=== PATIENT | female | born 1990 | race Caucasian/White ===

== ENCOUNTER 2016-08-15 19:48 | Inpatient (IN) | payer OTHER ==
[2016-08-15] MEDS ORDERED: Nalbuphine 20 MG/1 ML Amp IVPUSH PRN (20:50)
[2016-08-15] MEDS ORDERED: Ondansetron 4 MG/2 ML SDV IVPUSH PRN (20:50)
[2016-08-15] MEDS ORDERED: Aluminum Hydroxide/Magnesium Hydroxide/Simethicone Susp 30 ML Cup PO PRN (20:50)
[2016-08-15] MEDS ORDERED: Lidocaine 1% 50 ML MDV INJECT PRN (20:50)
[2016-08-15] MEDS ORDERED: Oxytocin/Lactated Ringers 10 UNIT/1,000 ML BAG IV SCH (21:00)
[2016-08-15] MEDS ORDERED: Ampicillin 2 GM in Sodium Chloride 0.9% 100 ML IV ONE (21:00)
[2016-08-15] MEDS: Lactated Ringers 1,000 ML IV SCH (21:05)
--- NOTE | 2016-08-15 22:05 | PCM.LDHP ---
<Shyla Ambrocio - Last Filed: 08/15/16 22:53> L&D History of Present Illness - General Date of Service: 08/15/16 Admit Problem/Dx: Patient Status Order with Admit Dx/Problem 08/15/16 20:51 Patient Status [ADT] Routine Patient Status: Refer to Observation Admission Diagnosis/Problem: Reason for Admit: SROM Nurse Unit Type: Labor and Delivery Admitting Physician: Sean Bean Attending Physician: Sean Bean Medicare 96 Hour Certification Statement: This Patient is Admitted for Inpatient Services and is Medically Appropriate and Meets Medical Necessity for Inpatient Admission. I Reasonably Expect the Patient Will Require Inpatient Services That Span a Period of Time Over 2 Midnights. My Rationale for Medically Necessary Inpatient Care Will Be Found in the Admission History & Physical and Progress Notes. I Reasonably Expect the Patient to be Discharged or Transferred Within 96 Hours After Admission to This [facility]. Admission Diagnosis/Problem Admission Diagnosis/Problem 08/15/16 22:00 39-3/7 week intrauterine SROM - early labor. Source of Information: Patient History Limitations: Reports: No limitations - History of Present Illness Introduction:: Eleanor is a 26-year-old female who presents with SROM, which occurred at approximately 1930. Patient reports good movement, minimal contractions, and denies vaginal bleeding. TISHA is 08/19/16 based on early ultrasound done on . She has had regular care. Fetus has been measuring large for gestational age throughout the . DTAP and influenza shots were given. 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 LMP 10/26/2015. History of irregular menses, occurring approximately every 40 days with variable flow. Menarche at age 12. Last pap smear 01/18/16. No history of STIs. Patient was not on control at time of conception. Patient blood type is O positive, antibody negative. Platelet count on admission 177. Hgb 12.2, hct 35.4%. Patient is rubella immune, RPR nonreactive, HBsAg negative, HIV negative. Negative for chlamydia and gonorrhea. GBS positive. Patient does plan to breastfeed. Medications: vitamins, daily. Allergies: No known allergies. PMH: Noncontributory. PSH: [place] tooth extraction, 2006. Family History: Mother and father both alive and well. Grandparents also alive and well. One sister, who is alive and well. Social History: The patient lives in [place] with her , Terence, and four dogs. Never a smoker. Denies use of alcohol during . Denies history of drug use. - Related Data Allergies/Adverse Reactions: Allergies Allergy/AdvReac Type Severity Reaction Status Date / Time No Known Allergies Allergy Verified 08/15/16 20:58 Home Medications: Home Meds PNV95/Ferrous Fumarate/FA [ Tablet] 1 each PO DAILY 08/06/16 [History] H&P Review of Systems - Review of Systems: Review Of Systems: See Below Free Text/Narrative: General: No weakness or malaise. Skin: No rash. No itching. HEENT: No visual changes. No tinnitus or vertigo. Neck: Supple. Cardiac: No palpitations. Respiratory: No SOB. No cough or sputum production. GI: No nausea or vomiting. No changes in bowel habits. Hematologic: No history of blood transfusion. L&D Exam - Exam Exam: See Below - Vital Signs Weight: 74.389 kg - OB Specific Contraction Intensity: Mild movement: active heart tones: present - Hopkins Score Hopkins Score Cervix Position: Midposition Hopkins Score Consistency: Soft Hopkins Score Effacement: 51-70% Hopkins Score Dilation: 1-2 cm Hopkins Score 's Station: -2 Hopkins Score Total: 7 - Exam General: alert, oriented HEENT: Conjunctiva clear Neck: supple, trachea midline Lungs: Clear to auscultation, Normal respiratory effort Cardiovascular: regular rate, regular rhythm Abdomen: other (Gravid uterus; fetus is vertex) Back Exam: normal inspection Extremities: normal inspection Skin: warm, dry, intact Psychiatric: alert, normal affect, normal mood - Patient Data Lab Results last 24 hrs: Laboratory Results - last 24 hr 08/15/16 Range/Units 21:10 WBC 9.90 (3.98-10.04) K/mm3 RBC 3.77 L (3.98-5.22) M/mm3 Hgb 12.2 (11.2-15.7) gm/L Hct 35.4 (34.1-44.9) % MCV 93.9 (79.4-94.8) fl MCH 32.4 H (25.6-32.2) pg MCHC 34.5 (32.2-35.5) g/dl RDW Std Deviation 42.4 (36.4-46.3) fL Plt Count 177 L (182-369) K/mm3 MPV 11.4 (9.4-12.3) fl Neut % (Auto) 67.5 (34.0-71.1) % Lymph % (Auto) 23.5 (19.3-51.7) % Bent % (Auto) 8.0 (4.7-12.5) % Eos % (Auto) 0.5 L (0.7-5.8) Baso % (Auto) 0.1 (0.1-1.2) % Neut # (Auto) 6.68 H (1.56-6.13) K/mm3 Lymph # (Auto) 2.33 (1.18-3.74) K/mm3 Bent # (Auto) 0.79 H (0.24-0.36) K/mm3 Eos # (Auto) 0.05 (0.04-0.36) K/mm3 Baso # (Auto) 0.01 (0.01-0.08) K/mm3 Result Diagrams: 08/15/16 21:10 Problem List Initiated/Reviewed/Updated: Yes Orders Last 24hrs: Active Orders 24 hr Category Date Time Status Patient Status [ADT] Routine ADT 08/15/16 20:51 Active Activity as Tolerated [RC] PFP Care 08/15/16 20:50 Active Communication Order [RC] ASDIRECTED Care 08/15/16 20:50 Active Notify Provider [RC] PFP Care 08/15/16 20:50 Active Notify Provider [RC] PRN Care 08/15/16 20:50 Active Vital Signs [RC] PER UNIT ROUTINE Care 08/15/16 20:50 Active Clear Liquid Diet [DIET] Diet 08/15/16 Breakfast Active TYPE AND SCREEN [BBK] Routine Lab 08/15/16 21:10 Received Alum Hydrox/Mag Hydrox/Simeth [Mag-Al Plus] Med 08/15/16 20:50 Active 30 ml PO Q8H PRN Ampicillin 1 gm Med 08/16/16 01:00 Active Sodium Chloride 0.9% [Normal Saline] 100 ml IV Q4H Lactated Ringers [Ringers, Lactated] 1,000 ml Med 08/15/16 21:00 Active IV ASDIRECTED Lidocaine 1% [Xylocaine 1%] Med 08/15/16 20:50 Active 50 ml INJECT ONETIME PRN Nalbuphine [Nubain] Med 08/15/16 20:50 Active 10 mg IVPUSH Q2H PRN Ondansetron [Zofran] Med 08/15/16 20:50 Active 4 mg IVPUSH Q4H PRN Oxytocin/Lactated Ringers [Pitocin in LR 10 Units/1,000 Med 08/15/16 21:00 Active ML] 10 unit in 1,000 ml IV ASDIRECTED Oxytocin/Lactated Ringers [Pitocin in LR 10 Units/1,000 Med 08/15/16 21:00 Active ML] 10 unit in 1,000 ml IV TITRATE Electronic Heart Tones Ext w TOCO [WOMSER] Oth 08/15/16 20:50 Ordered Routine Electronic Heart Tones Internal [WOMSER] Per Unit Oth 08/15/16 20:50 Ordered Routine Peripheral IV Insertion Adult [OM.PC] Routine Oth 08/15/16 20:50 Ordered Resuscitation Status Routine Resus Stat 08/15/16 20:50 Ordered Medication Orders Al Hydroxide/Mg Hydroxide (Mag-Al Plus) 30 ml PO Q8H PRN PRN Reason: Heartburn Ampicillin Sodium 1 gm/ Sodium (Chloride) 100 mls @ 200 mls/hr IV Q4H [facility]O Lactated Ringer's (Ringers, Lactated) 1,000 mls @ 100 mls/hr IV ASDIRECTED [facility] Last Admin: 08/15/16 21:05 Dose: 100 mls/hr Oxytocin/Lactated Ringer's (Pitocin In Lr 10 Units/1,000 Ml) 10 unit in 1,000 mls @ 500 mls/hr IV ASDIRECTED LAZARO Oxytocin/Lactated Ringer's (Pitocin In Lr 10 Units/1,000 Ml) 10 unit in 1,000 mls @ 12 mls/hr IV TITRATE LAZARO; 2 MUNITS/MIN PRN Reason: Protocol Lidocaine HCl (Xylocaine 1%) 50 ml INJECT ONETIME PRN PRN Reason: perineal pain Nalbuphine HCl (Nubain) 10 mg IVPUSH Q2H PRN PRN Reason: Pain (moderate 4-6) Ondansetron HCl (Zofran) 4 mg IVPUSH Q4H PRN PRN Reason: Nausea/Vomiting Assessment/Plan Comment:: Assessment: 39-3/7 week intrauterine with SROM - early . Continuous monitoring with baseline HR at 140 and moderate variability. Accelerations present. Minimal pain with contractions. GBS positive. Ampicillin started, per protocol. Plan: Begin IV pitocin. Epidural prn. Continue monitoring. Anticipate a . <Sean Bean - Last Filed: 08/16/16 08:43> L&D History of Present Illness - General Admit Problem/Dx: Patient Status Order with Admit Dx/Problem 08/15/16 20:51 Patient Status [ADT] Routine Patient Status: Refer to Observation Admission Diagnosis/Problem: Reason for Admit: SROM Nurse Unit Type: Labor and Delivery Admitting Physician: Sean Bean Attending Physician: Sean Bean Medicare 96 Hour Certification Statement: This Patient is Admitted for Inpatient Services and is Medically Appropriate and Meets Medical Necessity for Inpatient Admission. I Reasonably Expect the Patient Will Require Inpatient Services That Span a Period of Time Over 2 Midnights. My Rationale for Medically Necessary Inpatient Care Will Be Found in the Admission History & Physical and Progress Notes. I Reasonably Expect the Patient to be Discharged or Transferred Within 96 Hours After Admission to This Critical [facility] Hospital. Admission Diagnosis/Problem Admission Diagnosis/Problem L&D Exam - Vital Signs Vital Signs: Last Vital Signs Temp 36.3 C 08/15/16 20:50 Pulse 85 08/15/16 20:50 Resp 15 08/16/16 08:14 BP 122/82 08/15/16 20:50 Pulse Ox 99 08/16/16 08:14 - Patient Data Lab Results last 24 hrs: Laboratory Results - last 24 hr 08/15/16 08/15/16 Range/Units 21:10 21:10 WBC 9.90 (3.98-10.04) K/mm3 RBC 3.77 L (3.98-5.22) M/mm3 Hgb 12.2 (11.2-15.7) gm/L Hct 35.4 (34.1-44.9) % MCV 93.9 (79.4-94.8) fl MCH 32.4 H (25.6-32.2) pg MCHC 34.5 (32.2-35.5) g/dl RDW Std Deviation 42.4 (36.4-46.3) fL Plt Count 177 L (182-369) K/mm3 MPV 11.4 (9.4-12.3) fl Neut % (Auto) 67.5 (34.0-71.1) % Lymph % (Auto) 23.5 (19.3-51.7) % Bent % (Auto) 8.0 (4.7-12.5) % Eos % (Auto) 0.5 L (0.7-5.8) Baso % (Auto) 0.1 (0.1-1.2) % Neut # (Auto) 6.68 H (1.56-6.13) K/mm3 Lymph # (Auto) 2.33 (1.18-3.74) K/mm3 Bent # (Auto) 0.79 H (0.24-0.36) K/mm3 Eos # (Auto) 0.05 (0.04-0.36) K/mm3 Baso # (Auto) 0.01 (0.01-0.08) K/mm3 Blood Type O POSITIVE Gel Antibody Screen Negative Result Diagrams: 08/15/16 21:10 Orders Last 24hrs: Active Orders 24 hr Category Date Time Status Patient Status [ADT] Routine ADT 08/15/16 20:51 Active Activity as Tolerated [RC] Care 08/15/16 20:50 Active Vital Signs [RC] PER UNIT ROUTINE Care 08/15/16 20:50 Active Alum Hydrox/Mag Hydrox/Simeth [Mag-Al Plus] Med 08/15/16 20:50 Active 30 ml PO Q8H PRN Ampicillin 1 gm Med 08/16/16 01:00 Active Sodium Chloride 0.9% [Normal Saline] 100 ml IV Q4H Bupivacaine/fentaNYL/NS [fentaNYL/Bupivacaine/NS 2 MCG- Med 08/16/16 07:45 Active 0.125% 100 ML] 100 ml EPIDUR ASDIRECTED Lactated Ringers [Ringers, Lactated] 1,000 ml Med 08/15/16 21:00 Active IV ASDIRECTED Lidocaine 1% [Xylocaine 1%] Med 08/15/16 20:50 Active 50 ml INJECT ONETIME PRN Nalbuphine [Nubain] Med 08/15/16 20:50 Active 10 mg IVPUSH Q2H PRN Ondansetron [Zofran] Med 08/16/16 07:42 Active 4 mg IVPUSH ONETIME PRN Ondansetron [Zofran] Med 08/15/16 20:50 Active 4 mg IVPUSH Q4H PRN Oxytocin/Lactated Ringers [Pitocin in LR 10 Units/1,000 Med 08/15/16 21:00 Active ML] 10 unit in 1,000 ml IV ASDIRECTED Oxytocin/Lactated Ringers [Pitocin in LR 10 Units/1,000 Med 08/15/16 21:00 Active ML] 10 unit in 1,000 ml IV TITRATE diphenhydrAMINE [Benadryl] Med 08/16/16 07:43 Active 25 mg IVPUSH Q6H PRN ePHEDrine [ePHEDrine Sulfate] Med 08/16/16 07:44 Active 5 mg IVPUSH ASDIRECTED PRN fentaNYL [Sublimaze] Med 08/16/16 07:44 Active 100 mcg EPIDUR Q3H PRN Electronic Heart Tones Ext w TOCO [WOMSER] Oth 08/15/16 20:50 Ordered Routine Electronic Heart Tones Internal [WOMSER] Per Unit Oth 08/15/16 20:50 Ordered Routine Peripheral IV Insertion Adult [OM.PC] Routine Oth 08/15/16 20:50 Ordered Resuscitation Status Routine Resus Stat 08/15/16 20:50 Ordered Medication Orders Al Hydroxide/Mg Hydroxide (Mag-Al Plus) 30 ml PO Q8H PRN PRN Reason: Heartburn Diphenhydramine HCl (Benadryl) 25 mg IVPUSH Q6H PRN PRN Reason: Pruritis Ephedrine Sulfate (Ephedrine Sulfate) 5 mg IVPUSH ASDIRECTED PRN PRN Reason: Hypotension Fentanyl (Sublimaze) 100 mcg EPIDUR Q3H PRN PRN Reason: Pain Last Admin: 08/16/16 08:35 Dose: 100 mcg Fentanyl/Bupivacaine HCl (Fentanyl/Bupivacaine/Ns 2 Mcg-0.125% 100 Ml) 100 ml EPIDUR ASDIRECTED [facility] Last Admin: 08/16/16 08:36 Dose: 100 ml Ampicillin Sodium 1 gm/ Sodium (Chloride) 100 mls @ 200 mls/hr IV Q4H [facility] Last Admin: 08/16/16 06:12 Dose: 200 mls/hr Infusion: 08/16/16 02:23 Dose: 200 mls/hr Admin: 08/16/16 01:53 Dose: 200 mls/hr Lactated Ringer's (Ringers, Lactated) 1,000 mls @ 100 mls/hr IV ASDIRECTED [facility] Last Admin: 08/16/16 06:14 Dose: 100 mls/hr Infusion: 08/16/16 06:14 Dose: 100 mls/hr Admin: 08/16/16 01:58 Dose: 100 mls/hr Infusion: 08/16/16 01:58 Dose: 100 mls/hr Admin: 08/15/16 21:05 Dose: 100 mls/hr Oxytocin/Lactated Ringer's (Pitocin In Lr 10 Units/1,000 Ml) 10 unit in 1,000 mls @ 500 mls/hr IV ASDIRECTED [facility]O Oxytocin/Lactated Ringer's (Pitocin In Lr 10 Units/1,000 Ml) 10 unit in 1,000 mls @ 12 mls/hr IV TITRATE LAZARO; 2 MUNITS/MIN PRN Reason: Protocol Last Titration: 08/16/16 06:10 Dose: 8 munits/min, 48 mls/hr Titration: 08/16/16 02:50 Dose: 6 munits/min, 36 mls/hr Titration: 08/16/16 01:59 Dose: 4 munits/min, 24 mls/hr Admin: 08/16/16 01:10 Dose: 2 munits/min, 12 mls/hr Lidocaine HCl (Xylocaine 1%) 50 ml INJECT ONETIME PRN PRN Reason: perineal pain Nalbuphine HCl (Nubain) 10 mg IVPUSH Q2H PRN PRN Reason: Pain (moderate 4-6) Ondansetron HCl (Zofran) 4 mg IVPUSH Q4H PRN PRN Reason: Nausea/Vomiting Ondansetron HCl (Zofran) 4 mg IVPUSH ONETIME PRN PRN Reason: Nausea/Vomiting Assessment/Plan Comment:: Assessment: 1. 39-3/7 week intrauterine with spontaneous rupture of membranes-early labor 2. Group B strep positive-candidate for at about prophylaxis with ampicillin 3. plans a natural labor but is open to epidural 4. Plans to nurse 5.Tdap up-to-date Plan: 1. IV Pitocin if no significant contractions with the next 2-3 hours have to. 2. Epidural when necessary 3. Anticipate normal spontaneous vaginal delivery 4. Encourage nursing behavior.
[2016-08-16] MEDS: Oxytocin/Lactated Ringers 10 UNIT/1,000 ML BAG IV SCH ×2 (01:10→20:34)
[2016-08-16] MEDS: Ampicillin 1 GM in Sodium Chloride 0.9% 100 ML IV SCH ×6 (01:53→21:45)
[2016-08-16] MEDS: Lactated Ringers 1,000 ML IV SCH ×4 (01:58→20:31)
[2016-08-16] MEDS ORDERED: Ondansetron 4 MG/2 ML SDV IVPUSH PRN (07:42)
[2016-08-16] MEDS ORDERED: diphenhydrAMINE 50 MG/ML SDV IVPUSH PRN (07:43)
[2016-08-16] MEDS ORDERED: fentaNYL 100 MCG/2 ML SDV EPIDUR PRN (07:44)
[2016-08-16] MEDS ORDERED: ePHEDrine 50 MG/ML SDV IVPUSH PRN (07:44)
[2016-08-16] MEDS ORDERED: Bupivacaine/fentaNYL/NS 100 ML Bag EPIDUR SCH (07:45)
--- NOTE | 2016-08-16 08:13 | PCM.PREANE ---
Preanesthetic Assessment - Anesthesia/Transfusion/Family Hx Anesthesia History: No Prior Anesthesia Transfusion History: No Prior Transfusion(s) - Physical Assessment O2 Sat by Pulse Oximetry: 99 Respiratory Rate: 15 Vital Signs: Last Vital Signs Temp 36.3 C 08/15/16 20:50 Pulse 85 08/15/16 20:50 Resp 15 08/15/16 20:50 BP 122/82 08/15/16 20:50 Pulse Ox 99 08/15/16 20:50 Height: 1.57 m Weight: 74.389 kg - Lab Values: Laboratory Last Values WBC 9.90 K/mm3 (3.98-10.04) 08/15/16 21:10 RBC 3.77 M/mm3 (3.98-5.22) L 08/15/16 21:10 Hgb 12.2 gm/L (11.2-15.7) 08/15/16 21:10 Hct 35.4 % (34.1-44.9) 08/15/16 21:10 MCV 93.9 fl (79.4-94.8) 08/15/16 21:10 MCH 32.4 pg (25.6-32.2) H 08/15/16 21:10 MCHC 34.5 g/dl (32.2-35.5) 08/15/16 21:10 RDW Std Deviation 42.4 fL (36.4-46.3) 08/15/16 21:10 Plt Count 177 K/mm3 (182-369) L 08/15/16 21:10 MPV 11.4 fl (9.4-12.3) 08/15/16 21:10 Neut % (Auto) 67.5 % (34.0-71.1) 08/15/16 21:10 Lymph % (Auto) 23.5 % (19.3-51.7) 08/15/16 21:10 [place] % (Auto) 8.0 % (4.7-12.5) 08/15/16 21:10 Eos % (Auto) 0.5 (0.7-5.8) L 08/15/16 21:10 Baso % (Auto) 0.1 % (0.1-1.2) 08/15/16 21:10 Neut # (Auto) 6.68 K/mm3 (1.56-6.13) H 08/15/16 21:10 Lymph # (Auto) 2.33 K/mm3 (1.18-3.74) 08/15/16 21:10 [place] # (Auto) 0.79 K/mm3 (0.24-0.36) H 08/15/16 21:10 Eos # (Auto) 0.05 K/mm3 (0.04-0.36) 08/15/16 21:10 Baso # (Auto) 0.01 K/mm3 (0.01-0.08) 08/15/16 21:10 Blood Type O POSITIVE 08/15/16 21:10 Gel Antibody Screen Negative 08/15/16 21:10 - Allergies Allergies/Adverse Reactions: Allergies Allergy/AdvReac Type Severity Reaction Status Date / Time No Known Allergies Allergy Verified 08/15/16 20:58 PreAnesthesia Questionnaire - Past Health History Medical/Surgical History: Denies Medical/Surgical History - SUBSTANCE USE Smoking Status *Q: Never Smoker Tobacco Use Within Last Twelve Months: No Second Hand Smoke Exposure: No Recreational Drug Use History: No - HOME MEDS Home Medications: Home Meds PNV95/Ferrous Fumarate/FA [ Tablet] 1 each PO DAILY 08/06/16 [History] - CURRENT (IN HOUSE) MEDS Current Meds: Current Medications Al Hydroxide/Mg Hydroxide (Mag-Al Plus) 30 ml PO Q8H PRN PRN Reason: Heartburn Diphenhydramine HCl (Benadryl) 25 mg IVPUSH Q6H PRN PRN Reason: Pruritis Ephedrine Sulfate (Ephedrine Sulfate) 5 mg IVPUSH ASDIRECTED PRN PRN Reason: Hypotension Fentanyl (Sublimaze) 100 mcg EPIDUR Q3H PRN PRN Reason: Pain Fentanyl/Bupivacaine HCl (Fentanyl/Bupivacaine/Ns 2 Mcg-0.125% 100 Ml) 100 ml EPIDUR ASDIRECTED [facility] Ampicillin Sodium 1 gm/ Sodium (Chloride) 100 mls @ 200 mls/hr IV Q4H LAZARO Last Admin: 08/16/16 06:12 Dose: 200 mls/hr Lactated Ringer's (Ringers, Lactated) 1,000 mls @ 100 mls/hr IV ASDIRECTED [facility] Last Admin: 08/16/16 06:14 Dose: 100 mls/hr Oxytocin/Lactated Ringer's (Pitocin In Lr 10 Units/1,000 Ml) 10 unit in 1,000 mls @ 500 mls/hr IV ASDIRECTED [facility]O Oxytocin/Lactated Ringer's (Pitocin In Lr 10 Units/1,000 Ml) 10 unit in 1,000 mls @ 12 mls/hr IV TITRATE LAZARO; 2 MUNITS/MIN PRN Reason: Protocol Last Titration: 08/16/16 06:10 Dose: 8 munits/min, 48 mls/hr Lidocaine HCl (Xylocaine 1%) 50 ml INJECT ONETIME PRN PRN Reason: perineal pain Nalbuphine HCl (Nubain) 10 mg IVPUSH Q2H PRN PRN Reason: Pain (moderate 4-6) Ondansetron HCl (Zofran) 4 mg IVPUSH Q4H PRN PRN Reason: Nausea/Vomiting Ondansetron HCl (Zofran) 4 mg IVPUSH ONETIME PRN PRN Reason: Nausea/Vomiting Discontinued Medications Ampicillin Sodium 2 gm/ Sodium (Chloride) 100 mls @ 200 mls/hr IV ONETIME ONE Stop: 08/15/16 21:29 Last Admin: 08/15/16 21:33 Dose: 200 mls/hr Preanesthetic Assessment - ANESTHESIA/TRANSFUSION/FAMILY HX Anesthesia/Transfusion History: No Prior Anesthesia, No Prior Transfusion(s) Family History of Anesthesia Reaction: No Intubation History: Unknown Type of Transfusion Reactions: Reports: Unknown - REVIEW OF SYSTEMS Constitutional: Reports: no symptoms PROFESSIONAL ADVISOR: Reports: no symptoms Respiratory: Reports: no symptoms Cardiovascular: Reports: no symptoms GI: Reports: no symptoms (GERD) Other: Reports: None - PHYSICAL ASSESSMENT O2 Sat by Pulse Oximetry: 99 RR: 15 Vital Signs: Last Vital Signs Temp 36.3 C 08/15/16 20:50 Pulse 85 08/15/16 20:50 Resp 15 08/15/16 20:50 BP 122/82 08/15/16 20:50 Pulse Ox 99 08/15/16 20:50 Height: 1.57 m Weight: 74.389 kg NPO Status Date: 08/15/16 NPO Status Time: 19:00 ASA Class: 2 Mental Status: Alert & Oriented x3 Airway Class: Mallampati = 1 Dentition: Reports: Normal Dentition Thyro-Mental Finger Breadths: 3 Mouth Opening Finger Breadths: 3 ROM/Head Extension: Full Respiratory Status: lungs clear to auscultation bilaterally Cardiovascular Status: regular rate & rhythm, normal S1, S2, no murmur, blood pressure WNL - LAB Values: Laboratory Last Values WBC 9.90 K/mm3 (3.98-10.04) 08/15/16 21:10 RBC 3.77 M/mm3 (3.98-5.22) L 08/15/16 21:10 Hgb 12.2 gm/L (11.2-15.7) 08/15/16 21:10 Hct 35.4 % (34.1-44.9) 08/15/16 21:10 MCV 93.9 fl (79.4-94.8) 08/15/16 21:10 MCH 32.4 pg (25.6-32.2) H 08/15/16 21:10 MCHC 34.5 g/dl (32.2-35.5) 08/15/16 21:10 RDW Std Deviation 42.4 fL (36.4-46.3) 08/15/16 21:10 Plt Count 177 K/mm3 (182-369) L 08/15/16 21:10 MPV 11.4 fl (9.4-12.3) 08/15/16 21:10 Neut % (Auto) 67.5 % (34.0-71.1) 08/15/16 21:10 Lymph % (Auto) 23.5 % (19.3-51.7) 08/15/16 21:10 [place] % (Auto) 8.0 % (4.7-12.5) 08/15/16 21:10 Eos % (Auto) 0.5 (0.7-5.8) L 08/15/16 21:10 Baso % (Auto) 0.1 % (0.1-1.2) 08/15/16 21:10 Neut # (Auto) 6.68 K/mm3 (1.56-6.13) H 08/15/16 21:10 Lymph # (Auto) 2.33 K/mm3 (1.18-3.74) 08/15/16 21:10 [place] # (Auto) 0.79 K/mm3 (0.24-0.36) H 08/15/16 21:10 Eos # (Auto) 0.05 K/mm3 (0.04-0.36) 08/15/16 21:10 Baso # (Auto) 0.01 K/mm3 (0.01-0.08) 08/15/16 21:10 Blood Type O POSITIVE 08/15/16 21:10 Gel Antibody Screen Negative 08/15/16 21:10 - ALLERGIES Allergies/Adverse Reactions: Allergies Allergy/AdvReac Type Severity Reaction Status Date / Time No Known Allergies Allergy Verified 08/15/16 20:58 - BLOOD Blood Available: No Product(s) Available: None - ANESTHESIA PLAN Preop Beta Rod: No Anesthesia Type Planned: Epidural - ACKNOWLEDGEMENTS Pt an Appropriate Candidate for the Planned Anesthesia: Yes Alternatives and Risks of Anesthesia Discussed w Pt/Guardian: Yes Pt/Guardian Understands and Agrees with Anesthesia Plan: Yes
[2016-08-16] MEDS ORDERED: Acetaminophen 325 MG Tab PO ONE (17:55)
[2016-08-16] MEDS ORDERED: Bupivacaine 0.25% 10 ML SDV ONE (19:00)
--- NOTE | 2016-08-16 22:18 | PCM.SN ---
- Free Text/Narrative Note: Began pushing at 2029 with every contractions, epidural "turned down" about 2129. RAMON at +3 edema of vulva. Continue pushing and re-evaluate at about 2214.. FHT's stable Cat I with early decelerations. ice pack to perineum between contractions.
--- NOTE | 2016-08-16 23:29 | PCM.DEL ---
L & D Note - General Info Date of Service: 08/16/16 Mother's Due Date: 08/19/16 - Delivery Note Labor: spontaneous, augmented by oxytocin Delivery Outcome: Livebirth (Male liveborn at 22:50 on 08/16/16 over a fourth degree laceration under epidural anesthia RAMON, apgars 8/9, weight 4167g, 9lbs 3oz.) Infant Delivery Method: Spontaneous Vaginal Delivery Delivery Mode: Spontaneous Presentation: Left Occiput Anterior (RAMON) Nuchal cord: none Prep: povidone-iodine (betadine Anesthesia Type: Epidural Anesthetic: lidocaine (xylocaine) 1% plain Local anesthetic volume: other (30cc) Amniotic Fluid Description: Clear Episiotomy Type: None Laceration: 4th degree Suture type: other (monocryl x4) Suture size: 3-0 Placenta: intact, spontaneous (22:56 08/16/16) Cord: 3 vessels Estimated blood loss: 500 Resuscitation needed: No [place]: suctioned, bulb syringe, stimulated, warmed, blanket used, warmer used Provider: Wiley Groves Score 1 min: 8 Score 5 min: 9 - Patient Data Vitals - most recent: Last Vital Signs Temp 38.1 C 08/16/16 18:30 Pulse 85 08/15/16 20:50 Resp 15 08/16/16 08:14 BP 122/82 08/15/16 20:50 Pulse Ox 99 08/16/16 08:14 Weight - most recent: 74.389 kg I&O - last 24 hours: Intake & Output 08/16/16 08/16/16 08/17/16 14:59 22:59 06:59 Intake Total 0 Balance 0 Med Orders - Current: Current Medications Al Hydroxide/Mg Hydroxide (Mag-Al Plus) 30 ml PO Q8H PRN PRN Reason: Heartburn Diphenhydramine HCl (Benadryl) 25 mg IVPUSH Q6H PRN PRN Reason: Pruritis Ephedrine Sulfate (Ephedrine Sulfate) 5 mg IVPUSH ASDIRECTED PRN PRN Reason: Hypotension Fentanyl (Sublimaze) 100 mcg EPIDUR Q3H PRN PRN Reason: Pain Last Admin: 08/16/16 08:35 Dose: 100 mcg Fentanyl/Bupivacaine HCl (Fentanyl/Bupivacaine/Ns 2 Mcg-0.125% 100 Ml) 100 ml EPIDUR ASDIRECTED LAZARO Last Admin: 08/16/16 08:36 Dose: 100 ml Ampicillin Sodium 1 gm/ Sodium (Chloride) 100 mls @ 200 mls/hr IV Q4H LAZARO Last Admin: 08/16/16 21:45 Dose: 200 mls/hr Lactated Ringer's (Ringers, Lactated) 1,000 mls @ 100 mls/hr IV ASDIRECTED LAZARO Last Infusion: 08/16/16 19:35 Dose: Infused Oxytocin/Lactated Ringer's (Pitocin In Lr 10 Units/1,000 Ml) 10 unit in 1,000 mls @ 500 mls/hr IV ASDIRECTED LAZARO Oxytocin/Lactated Ringer's (Pitocin In Lr 10 Units/1,000 Ml) 10 unit in 1,000 mls @ 12 mls/hr IV TITRATE LAZARO; 2 MUNITS/MIN PRN Reason: Protocol Last Titration: 08/16/16 22:36 Dose: 8 munits/min, 48 mls/hr Lidocaine HCl (Xylocaine 1%) 50 ml INJECT ONETIME PRN PRN Reason: perineal pain Nalbuphine HCl (Nubain) 10 mg IVPUSH Q2H PRN PRN Reason: Pain (moderate 4-6) Ondansetron HCl (Zofran) 4 mg IVPUSH Q4H PRN PRN Reason: Nausea/Vomiting Ondansetron HCl (Zofran) 4 mg IVPUSH ONETIME PRN PRN Reason: Nausea/Vomiting Discontinued Medications Acetaminophen (Tylenol) 650 mg PO NOW ONE Stop: 08/16/16 17:56 Last Admin: 08/16/16 18:30 Dose: 650 mg Ampicillin Sodium 2 gm/ Sodium (Chloride) 100 mls @ 200 mls/hr IV ONETIME ONE Stop: 08/15/16 21:29 Last Admin: 08/15/16 21:33 Dose: 200 mls/hr - Problem List & Annotations (1) Fourth degree laceration of perineum, delivered, current hospitalization SNOMED Code(s): 819686293, 088950110 Code(s): O70.3 - FOURTH DEGREE PERINEAL LACERATION DURING DELIVERY Status: Acute Current Visit: Yes (2) macrosomia, delivered, current hospitalization SNOMED Code(s): 74670246, 115370842 Code(s): O36.60X0 - MATERNAL CARE FOR EXCESS GROWTH, UNSP TRIMESTER, UNSP Status: Acute Current Visit: Yes (3) 39 weeks gestation of SNOMED Code(s): 80475271 Code(s): Z3A.39 - 39 WEEKS GESTATION OF Status: Acute Current Visit: No (4) Prolonged rupture of membranes, greater than 24 hours, delivered, current hospitalization SNOMED Code(s): 026819355 Code(s): O42.10 - [place] ROM, ONSET LABOR > 24 HR FOL RUPT, UNSP WEEKS OF GEST Status: Acute Current Visit: No - Problem List Review Problem List Initiated/Reviewed/Updated: No - Plan Plan:: Assessment: 1. 39-3/7 week intrauterine with spontaneous rupture of membranes-early labor 2. Group B strep positive-candidate for at about prophylaxis with ampicillin 3. plans a natural labor but is open to epidural 4. Plans to nurse 5.Tdap up-to-date Plan: 1. IV Pitocin if no significant contractions with the next 2-3 hours have to. 2. Epidural when necessary 3. Anticipate normal spontaneous vaginal delivery 4. Encourage nursing behavior.
[2016-08-16] MEDS ORDERED: Witch Hazel Medicated Pads 100/Jar TOP PRN (23:53)
[2016-08-16] MEDS ORDERED: Acetaminophen/oxyCODONE 325-5 MG Tab PO PRN (23:53)
[2016-08-16] MEDS ORDERED: Lanolin 100% Cream 7 GM Tube TOP PRN (23:53)
[2016-08-16] MEDS ORDERED: Acetaminophen 325 MG Tab PO PRN (23:53)
[2016-08-16] MEDS ORDERED: Benzocaine/Menthol 20%-0.5% Spray 56 GM Canister TOP PRN (23:53)
[2016-08-17] MEDS: Ibuprofen 600 MG Tab PO PRN ×5 (00:12→21:30)
[2016-08-17] MEDS: Docusate Sodium 100 MG Cap PO PRN ×3 (00:12→21:32)
--- NOTE | 2016-08-17 07:22 | PCM.SN ---
- Free Text/Narrative Note: Afebrile, no heavy vaginal bleeding vulvar edema resolving, uterus involuting normally, no leg cramping. Dr Mae assumes weekend call later today.
[2016-08-18] MEDS: Ibuprofen 600 MG Tab PO PRN ×3 (04:27→14:17)
--- NOTE | 2016-08-18 08:00 | PCM.DCSUM1 ---
Discharge Summary - Discharge Data Discharge Date: 08/18/16 Discharge Disposition: Home, Self-Care 01 Condition: Good - Patient Instructions Diet: Usual Diet as Tolerated Activity: No Strenuous Activities Activity, Other: pelvic rest Driving: May Drive Today Wound/Incision Care: Keep Operative Site/Wound Site Clean and Dry, Change Dressing Daily, Do NOT Change Dressing Notify Provider of: Fever - Discharge Plan Home Medications: Home Meds PNV95/Ferrous Fumarate/FA [ Tablet] 1 each PO DAILY 08/06/16 [History] Referrals: Wiley Groves MD [Physician] - (6 weeks.) - Discharge Summary/Plan Comment DC Time >30 min.: No - General Info Date of Service: 08/18/16 Functional Status: Reports: pain controlled - Review of Systems General: Reports: No Symptoms HEENT: Reports: no symptoms Pulmonary: Reports: no symptoms Cardiovascular: Reports: No Symptoms Gastrointestinal: Reports: No symptoms Genitourinary: Reports: no symptoms Musculoskeletal: Reports: no symptoms Skin: Reports: no symptoms Neurological: Reports: No Symptoms Psychiatric: Reports: no symptoms - Patient Data Vitals - Most Recent: Last Vital Signs Temp 36.4 C 08/18/16 04:15 Pulse 72 08/18/16 04:15 Resp 16 08/18/16 04:15 BP 97/70 08/18/16 04:15 Pulse Ox 97 08/18/16 04:15 Weight - Most Recent: 74.389 kg I&O - Last 24 hours: Intake & Output 08/17/16 08/18/16 08/18/16 22:59 06:59 14:59 Intake Total 360 Balance 360 Med Orders - Current: Current Medications Acetaminophen (Tylenol) 650 mg PO Q4H PRN PRN Reason: mild pain or fever Benzocaine/Menthol (Dermoplast Pain Relief [place]) 0 gm TOP ASDIRECTED PRN PRN Reason: Perineal Comfort Measure Last Admin: 08/17/16 00:14 Dose: 1 can Docusate Sodium (Colace) 100 mg PO BID PRN PRN Reason: Constipation Last Admin: 08/17/16 21:32 Dose: 100 mg Emollient Ointment (Lansinoh Hpa) 0 gm TOP ASDIRECTED PRN PRN Reason: Sore Nipples Ibuprofen (Motrin) 600 mg PO Q4H PRN PRN Reason: Mild pain or fever Last Admin: 08/18/16 04:27 Dose: 600 mg Oxycodone/Acetaminophen (Percocet 325-5 Mg) 2 tab PO Q4H PRN PRN Reason: Pain (moderate 4-6) Witch Barbara (Tucks) 1 pad TOP ASDIRECTED PRN PRN Reason: Hemorrhoid pain Last Admin: 08/17/16 00:15 Dose: 1 can Discontinued Medications Acetaminophen (Tylenol) 650 mg PO NOW ONE Stop: 08/16/16 17:56 Last Admin: 08/16/16 18:30 Dose: 650 mg Al Hydroxide/Mg Hydroxide (Mag-Al Plus) 30 ml PO Q8H PRN PRN Reason: Heartburn Diphenhydramine HCl (Benadryl) 25 mg IVPUSH Q6H PRN PRN Reason: Pruritis Ephedrine Sulfate (Ephedrine Sulfate) 5 mg IVPUSH ASDIRECTED PRN PRN Reason: Hypotension Fentanyl (Sublimaze) 100 mcg EPIDUR Q3H PRN PRN Reason: Pain Last Admin: 08/16/16 08:35 Dose: 100 mcg Fentanyl/Bupivacaine HCl (Fentanyl/Bupivacaine/Ns 2 Mcg-0.125% 100 Ml) 100 ml EPIDUR ASDIRECTED LAZARO Last Admin: 08/16/16 08:36 Dose: 100 ml Ampicillin Sodium 2 gm/ Sodium (Chloride) 100 mls @ 200 mls/hr IV ONETIME ONE Stop: 08/15/16 21:29 Last Admin: 08/15/16 21:33 Dose: 200 mls/hr Ampicillin Sodium 1 gm/ Sodium (Chloride) 100 mls @ 200 mls/hr IV Q4H LAZARO Last Admin: 08/16/16 21:45 Dose: 200 mls/hr Lactated Ringer's (Ringers, Lactated) 1,000 mls @ 100 mls/hr IV ASDIRECTED LAZARO Last Infusion: 08/16/16 19:35 Dose: Infused Oxytocin/Lactated Ringer's (Pitocin In Lr 10 Units/1,000 Ml) 10 unit in 1,000 mls @ 500 mls/hr IV ASDIRECTED LAZARO Oxytocin/Lactated Ringer's (Pitocin In Lr 10 Units/1,000 Ml) 10 unit in 1,000 mls @ 12 mls/hr IV TITRATE LAZARO; 2 MUNITS/MIN PRN Reason: Protocol Last Titration: 08/16/16 22:36 Dose: 8 munits/min, 48 mls/hr Lidocaine HCl (Xylocaine 1%) 50 ml INJECT ONETIME PRN PRN Reason: perineal pain Nalbuphine HCl (Nubain) 10 mg IVPUSH Q2H PRN PRN Reason: Pain (moderate 4-6) Ondansetron HCl (Zofran) 4 mg IVPUSH Q4H PRN PRN Reason: Nausea/Vomiting Ondansetron HCl (Zofran) 4 mg IVPUSH ONETIME PRN PRN Reason: Nausea/Vomiting - Exam General: Reports: alert, oriented HEENT: Reports: Pupils equal, Pupils reactive, EOMI, Mucous membr. moist/pink Neck: Reports: supple Lungs: Reports: Clear to auscultation, Normal respiratory effort Cardiovascular: Reports: Regular Rate, Regular Rhythm Abdomen: Reports: bowel sounds present, soft, no tenderness, no distension (Female) Exam: Normal external exam, Normal speculum exam, Normal bimanual exam Back Exam: Reports: normal inspection, full range of motion Extremities: Reports: no edema, normal pulses Skin: Reports: warm, dry, intact Wound/Incisions: Reports: healing well Neurological: Reports: no new focal deficit Psy/Mental Status: Reports: alert, normal affect, normal mood *Q Meaningful Use (DIS) - VTE *Q VTE Criteria *Q: - Stroke *Q Stroke Criteria *Q: - AMI *Q AMI Criteria *Q:
[2016-08-18 14:24] VITALS: BP 125/70
== END 2016-08-18 14:45 | disposition home or self-care (01) | DRG 775 ==
LOC: JD.OB 19:48 → JD.OBCHECK 19:48 → INTOOBSV 20:51 → JD.OB 20:51 → UNDOADMOB 20:51 → OBSVTOIN 20:51 → JD.OB 08-16 22:50 → OBSVTOIN 08-16 22:50 → JD.OB 08-16 22:50
PROVIDERS: ADMIT Obstetrics & Gynecology; ATTEND Obstetrics & Gynecology
PROC: 10E0XZZ Delivery of Products of Conception, External Approach (ICD-10-PCS; principal; 2016-08-16)
PROC: 0DQP0ZZ Repair Rectum, Open Approach (ICD-10-PCS; 2016-08-16)
PROC: 00HU33Z Insertion of Infusion Device into Spinal Canal, Percutaneous Approach (ICD-10-PCS; 2016-08-16)
PROC: 3E0R3CZ (ICD-10-PCS; 2016-08-16)
DX: O42.92 Full-term premature rupture of membranes, unspecified as to length of time between rupture and onset of labor (principal); O70.3 Fourth degree perineal laceration during delivery; O99.824 Streptococcus B carrier state complicating childbirth; Z3A.39 39 weeks gestation of pregnancy; Z37.0 Single live birth
CPT/HCPCS: 36415; 85025; 86850; 86900; 86901; A9270-GY; J0290; J2590; J3010; J7030; J7120

== ENCOUNTER 2022-08-27 15:05 | Inpatient (IN) | payer BC ==
[2022-08-27] MEDS ORDERED: Metoclopramide 10 MG/2 ML SDV IVPUSH ONE (15:31)
[2022-08-27] MEDS ORDERED: ceFAZolin 2 GM in Sodium Chloride 0.9% 50 ML IV ONE (15:31)
[2022-08-27] MEDS ORDERED: Citric Acid/Sodium Citrate Solution 30 ML Cup PO ONE (15:31)
[2022-08-27] MEDS ORDERED: Lactated Ringers 1,000 ML IV SCH (15:45)
[2022-08-27] MEDS ORDERED: Bupivacaine 0.5% 30 ML SDV ONE (15:50)
[2022-08-27] MEDS ORDERED: fentaNYL 100 MCG/2 ML SDV ONE (16:49)
[2022-08-27] MEDS ORDERED: Morphine PF 1 MG/ML Amp ONE (16:50)
[2022-08-27] MEDS ORDERED: ceFAZolin 2 GM Vial ONE (16:51)
[2022-08-27] MEDS ORDERED: Phenylephrine 1% 10 MG/ML SDV ONE (17:12)
[2022-08-27] MEDS ORDERED: Lactated Ringers 1,000 ML ONE ×2 (17:12→17:29)
[2022-08-27] MEDS ORDERED: Oxytocin 10 Units/1 ML SDV ONE (17:23)
[2022-08-27] MEDS ORDERED: Ondansetron 4 MG/2 ML SDV ONE (17:23)
[2022-08-27] MEDS ORDERED: Ketorolac 30 MG/ML SDV ONE (17:36)
[2022-08-27] MEDS ORDERED: Ondansetron 4 MG/2 ML SDV IVPUSH PRN (18:01)
[2022-08-27] MEDS ORDERED: fentaNYL 100 MCG/2 ML SDV IVPUSH PRN (18:01)
[2022-08-27] MEDS ORDERED: Naloxone 0.4 MG/ML SDV IVPUSH PRN (18:57)
[2022-08-27] MEDS ORDERED: Dextrose 5%-Lactated Ringers 1,000 ML IV SCH (18:57)
[2022-08-27] MEDS ORDERED: ePHEDrine 50 MG/ML SDV IVPUSH PRN (18:57)
[2022-08-27] MEDS ORDERED: diphenhydrAMINE 50 MG/ML SDV IVPUSH PRN (18:57)
[2022-08-27] MEDS ORDERED: Ondansetron 4 MG/2 ML SDV IV PRN (18:57)
[2022-08-27] MEDS: diphenhydrAMINE 50 MG/ML SDV IVPUSH PRN (20:46)
[2022-08-28] MEDS: Acetaminophen/oxyCODONE 325-5 MG Tab PO PRN ×3 (00:10→18:48)
[2022-08-28] MEDS: Ibuprofen 600 MG Tab PO PRN ×4 (00:10→20:34)
[2022-08-28] MEDS: Docusate Sodium 100 MG Cap PO PRN ×2 (08:09→20:34)
[2022-08-28] MEDS: Prenatal Multivitamin with Calcium/Folic Acid/Iron Tab PO SCH (08:09)
[2022-08-28] MEDS: diphenhydrAMINE 50 MG/ML SDV IVPUSH PRN ×2 (09:12→15:19)
[2022-08-28] MEDS: Simethicone 80 MG Tab.Chew PO PRN (20:36)
[2022-08-29] MEDS: Acetaminophen/oxyCODONE 325-5 MG Tab PO PRN ×5 (00:30→21:49)
[2022-08-29] MEDS: Simethicone 80 MG Tab.Chew PO PRN (00:32)
[2022-08-29] MEDS: Ibuprofen 600 MG Tab PO PRN ×3 (03:45→20:46)
[2022-08-29] MEDS: Prenatal Multivitamin with Calcium/Folic Acid/Iron Tab PO SCH ×2 (07:53→19:55)
[2022-08-30] MEDS: Acetaminophen/oxyCODONE 325-5 MG Tab PO PRN ×2 (02:15→06:23)
[2022-08-30 05:38] VITALS: BP 116/65; PULSE 58
== END 2022-08-30 09:40 | disposition home or self-care (01) | DRG 540 ==
LOC: JD.OB 15:05 → OBSVTOIN 15:31 → JD.OB 15:31
PROVIDERS: ADMIT Obstetrics & Gynecology; ATTEND Obstetrics & Gynecology
PROC: 10D00Z1 Extraction of Products of Conception, Low, Open Approach (ICD-10-PCS; principal; 2022-08-27)
DX: O34.211 Maternal care for low transverse scar from previous cesarean delivery (principal); K42.9 Umbilical hernia without obstruction or gangrene; O99.62 Diseases of the digestive system complicating childbirth; Z37.0 Single live birth; Z3A.39 39 weeks gestation of pregnancy
CPT/HCPCS: 01961; 36415; 59025; 85025; 86592; 86850; 86900; 86901; A9270-GY; J0690; J1200; J1885; J2274; J2370; J2405; J2590; J2765; J3010; J3490; J7120; J7121